=== PATIENT | female | born 1950 | race Caucasian/White ===

== ENCOUNTER 2017-06-26 12:50 | Observation (INO) | payer OTHER ==
[2017-06-26 12:53] VITALS: BMI 35.6
[2017-06-26] MEDS ORDERED: Iohexol 240 (50 ml) ONE (13:40)
--- NOTE | 2017-06-26 13:41 | ED PDOC ---
Arrival/HPI - General Chief Complaint: Shortness Of Breath Time Seen by Provider: 06/26/17 12:52 Historian: Patient - History of Present Illness Narrative History of Present Illness (Text): 06/26/17 13:36 A 67 year old female, whose past medical history includes hypertension, diabetes , diabetic neuropathy and hepatitis c, presents to the emergency department for worsening epigastric and lower chest pain for the past 3 days. Patient reports the pain which she describes as a burning sensation but mainly worse with exertion. She notes a headache and states she was concerned since her blood pressure was 169/103 this morning. Patient also notes dyspnea on exertion, generalized weakness and fatigue, but denies any fever, chills, nausea, vomiting , diarrhea, urinary symptoms, cough, dizziness, vision changes or any other complaints. Patient is complaint with her medications. She is followed at [facility] for her hep C and cirrhosis. Time/Duration: Other (3 days) Symptom Course: Worsening Quality: Other Context: Home Past Medical History - Provider Review Nursing Documentation Reviewed: Yes - Infectious Disease Hx of Infectious Diseases: None - Tetanus Immunization Tetanus Immunization: Unknown - Reproductive Menopause: Yes - Cardiac Hx Cardiac Disorders: Yes Hx Circulatory Problems: Yes Hx Hypertension: Yes Hx Peripheral Edema: Yes - Pulmonary Hx Respiratory Disorders: Yes Hx Asthma: Yes (Climate induced.) Hx Bronchitis: Yes - Neurological Hx Neurological Disorder: No - HEENT Hx HEENT Disorder: No - Renal Hx Renal Disorder: No - Endocrine/Metabolic Hx Endocrine Disorders: Yes Hx Diabetes Mellitus Type 2: Yes - Hematological/Oncological Hx Blood Disorders: Yes (Occasional nosebleeds.) Hx Hepatitis C: Yes - Integumentary Hx Dermatological Disorder: No - Musculoskeletal/Rheumatological Hx Musculoskeletal Disorders: Yes Hx Back Pain: Yes Hx Herniated Disk: Yes Hx Osteoporosis: Yes - Gastrointestinal Hx Gastrointestinal Disorders: Yes (Hx of Colon Polyps.) - Genitourinary/Gynecological Hx Genitourinary Disorders: No - Psychiatric Hx Psychophysiologic Disorder: No Hx Substance Use: No - Past Surgical History Past Surgical History: Unable to Obtain - Surgical History Hx Cardiac Catheterization: Yes - Suicidal Assessment Feels Threatened In Home Enviroment: No Family/Social History - Physician Review Nursing Documentation Reviewed: Yes Family/Social History: No Known Family HX Smoking Status: Never Smoked Hx Alcohol Use: No Hx Substance Use: No Hx Substance Use Treatment: No Allergies/Home Meds Allergies/Adverse Reactions: Allergies No Known Allergies Allergy (Verified 02/11/16 15:17) Home Medications: Home Meds Medication Instructions Recorded Confirmed Glimepiride 1 mg PO BID 02/24/13 06/26/17 Esomeprazole Magnesium [Nexium] 40 mg PO DAILY 02/11/16 06/26/17 amLODIPine [Norvasc] 5 mg PO DAILY 02/11/16 06/26/17 Carvedilol [Coreg] 3.125 mg PO BID 06/26/17 06/26/17 tiZANidine [Zanaflex] 4 mg PO HS 06/26/17 06/26/17 Review of Systems - Physician Review All systems were reviewed & negative as marked: Yes - Review of Systems Constitutional: Fatigue (/weakness). absent: Fevers, Night Sweats Eyes: absent: Vision Changes Respiratory: Other (HICKS). absent: Cough Cardiovascular: Chest Pain (Lower) Gastrointestinal: Abdominal Pain (Epigastric). absent: Diarrhea, Nausea, Vomiting Genitourinary Female: absent: Dysuria, Frequency, Hematuria, Urine Output Changes Neurological: Headache. absent: Dizziness Physical Exam Vital Signs Reviewed: Yes Vital Signs Temp Pulse Resp BP Pulse Ox 06/26/17 16:46 71 18 131/74 87 L 06/26/17 15:41 56 L 20 139/68 99 06/26/17 13:06 18 06/26/17 12:51 98.2 F 66 17 139/72 98 Temperature: Afebrile Blood Pressure: Normal Pulse: Regular Respiratory Rate: Normal Appearance: Positive for: Well-Appearing, Non-Toxic, Comfortable Pain Distress: None Mental Status: Positive for: Alert and Oriented X 3 Finger Stick Blood Glucose: 227 - Systems Exam Head: Present: Atraumatic, Normocephalic Pupils: Present: PERRL Conjunctiva: Present: Normal Mouth: Present: Moist Mucous Membranes Pharnyx: No: ERYTHEMA, EXUDATE, TONSILS ENLARGED Neck: Present: Normal Range of Motion Respiratory/Chest: Present: Clear to Auscultation, Good Air Exchange. No: Respiratory Distress, Accessory Muscle Use Cardiovascular: Present: Regular Rate and Rhythm, Normal S1, S2. No: Murmurs Abdomen: Present: Tenderness (Mild tenderness to bilateral upper quadrants), Normal Bowel Sounds. No: Distention, Peritoneal Signs, Rebound, Guarding Back: Present: Normal Inspection Upper Extremity: Present: Normal Inspection. No: Cyanosis, Edema Lower Extremity: Present: Normal Inspection. No: Edema Neurological: Present: GCS=15, CN II-XII Intact, Speech Normal Skin: Present: Warm, Dry, Normal Color. No: Rashes Psychiatric: Present: Alert, Oriented x 3, Normal Insight, Normal Concentration Medical Decision Making ED Course and Treatment: 06/26/17 13:36 Impression: A 67 year old female with worsening epigastric abdominal pain. Patient notes lower chest pain, dyspnea on exertion, headache, weakness and fatigue. Plan: -- Head CT -- Abdomen and pelvis CT -- Chest xray -- EKG -- Labs -- Urinalysis -- Pepcid -- Reassess and disposition Progress Notes: EKG shows NSR at 66 BPM with normal intervals, normal axis, no ST/T changes, with no changes from prior on 02/12/16. Interpreted by me. Report Date : 06/26/2017 13:44:41 Procedure: Chest xray Dictator : Zayda Gonzalez MD IMPRESSION: No active pulmonary disease. Report Date : 06/26/2017 16:37:54 PROCEDURE: CT Abdomen and Pelvis with contrast Dictator : Jalen Chávez MD IMPRESSION: Cirrhosis. Peripancreatic and celiac region adenopathy unchanged. Esophageal and gastric varices unchanged. Report Date : 06/26/2017 16:26:17 PROCEDURE: CT HEAD WITHOUT CONTRAST. Dictator : Jalen Chávez MD IMPRESSION: No acute findings 06/26/17 17:34 Patient with noted history. CT a/p showing no changes and labs are nondiagnostic. However the patient's symptoms are worse with exertion, and she is an elderly diabetic, making her at higher risk for ACS, so she will need to be placed on observation on tele for further assessment for possible cardiac etiology of her pain. Discussed with Dr. Rodriguez for placement on the hospitalist' s service. - Lab Interpretations Lab Results: 06/26/17 13:20 06/26/17 13:20 Lab Results 06/26/17 15:05: Urine Color Yellow, Urine Appearance Clear, Urine pH 6.5, Ur Specific [place] 1.015, Urine Protein Negative, Urine Glucose (UA) Negative, Urine Ketones Negative, Urine Blood Negative, Urine Nitrate Negative, Urine Bilirubin Negative, Urine Urobilinogen 0.2, Ur Leukocyte Esterase Negative 06/26/17 13:25: POC Glucose (mg/dL) 227 H 06/26/17 13:20: Sodium 132, Potassium 4.2, Chloride 97 L, Carbon Dioxide 25, Anion Gap 14, BUN 18, Creatinine 0.7, Est GFR ( Amer) > 60, Est GFR (Non- Af Amer) > 60, Random Glucose 209 H, Calcium 8.8, Magnesium 1.4 L, Total Bilirubin 0.8, AST 91 H, ALT 75 H, Alkaline Phosphatase 92, Lactate Dehydrogenase 410, Total Creatine Kinase 43, Troponin I 0.01, NT-Pro-B Natriuret Pep 111, Total Protein 7.3, Albumin 3.5, Globulin 3.8, Albumin/ Globulin Ratio 0.9 L, Lipase 266 06/26/17 13:20: PT 11.4, INR 1.06, APTT 30.6 06/26/17 13:20: WBC 4.3 L, RBC 4.58, Hgb 10.8 L, Hct 33.1 L, MCV 72.3 L, MCH 23.6 L, MCHC 32.6, RDW 17.1 H, Plt Count 118 L, Gran % 45.3 L, Lymph % (Auto) 41.1 H, Hayes % (Auto) 9.6 H, Eos % (Auto) 3.5, Baso % (Auto) 0.5, Gran # 1.94, Lymph # 1.8, Hayes # 0.4, Eos # 0.2, Baso # 0.02 I have reviewed the lab results: Yes - RAD Interpretation Radiology Orders: 06/26/17 13:07 CHEST PORTABLE [RAD] Stat 06/26/17 13:36 Brain [HEAD W/O CONTRAST] [CT] Stat 06/26/17 13:37 ABD PELVIS PO & IV CONTRAST [CT] Stat - Medication Orders Current Medication Orders: Discontinued Medications Famotidine (Pepcid) 20 mg IVP STAT STA Stop: 06/26/17 13:08 Last Admin: 06/26/17 13:32 Dose: 20 mg Magnesium Sulfate 2 gm/ Sodium (Chloride) 104 mls @ 102 mls/hr IV ONCE ONE Stop: 06/26/17 15:18 Last Admin: 06/26/17 14:29 Dose: 102 mls/hr Iohexol (Omnipaque 240 (50 Ml)) Confirm Administered Dose 50 ml .ROUTE .STK-MED ONE Stop: 06/26/17 13:41 Iohexol (Omnipaque 350 100 Ml) Confirm Administered Dose 350 mg .ROUTE .STK-MED ONE Stop: 06/26/17 15:40 Ondansetron HCl (Zofran Inj) 4 mg IVP STAT STA Stop: 06/26/17 14:44 Last Admin: 06/26/17 14:51 Dose: 4 mg - Scribe Statement The provider has reviewed the documentation as recorded by the Helenibadan Briones Provider Scribe Attestation: All medical record entries made by the Scribe were at my direction and personally dictated by me. I have reviewed the chart and agree that the record accurately reflects my personal performance of the history, physical exam, medical decision making, and the department course for this patient. I have also personally directed, reviewed, and agree with the discharge instructions and disposition. Disposition/Present on Arrival - Present on Arrival Any Indicators Present on Arrival: Yes History of DVT/PE: No History of Uncontrolled Diabetes: Yes Urinary Catheter: No History of Decub. Ulcer: No History Surgical Site Infection Following: None - Disposition Have Diagnosis and Disposition been Completed?: Yes Diagnosis: Chest pain Disposition: HOSPITALIZED Disposition Time: 17:23 Patient Plan: Observation, Telemetry Condition: FAIR Discharge Instructions (ExitCare): Chest Pain (ED) Referrals: PCP,NO [Primary Care Provider] - Follow up with primary Forms: [employer] (Tunisian)
--- NOTE | 2017-06-26 13:46 | RAD ---
HISTORY: Chest pain COMPARISON: 02/11/2016. FINDINGS: LUNGS: The lungs are well inflated and clear. PLEURA: No significant pleural effusion identified, no pneumothorax apparent. CARDIOVASCULAR: Normal. OSSEOUS STRUCTURES: No significant abnormalities. VISUALIZED UPPER ABDOMEN: Normal. OTHER FINDINGS: None. IMPRESSION: No active pulmonary disease.
[2017-06-26 13:49] LABS: BASO # 0.02 K/mm3 (0.0-2.0); BASO % 0.5 % (0.0-3.0); EOS # 0.2 (0.0-0.7); EOS % 3.5 % (1.5-5.0); GRAN # 1.94 (1.4-6.5); GRAN % 45.3 % (50.0-68.0); HEMATOCRIT 33.1 % (36.0-48.0); LYMPH # 1.8 (1.2-3.4); LYMPH % 41.1 % (22.0-35.0); MEAN CELL VOLUME 72.3 fl (80.0-105.0); MEAN CORPUSCULAR HEMOGLOBIN 23.6 pg (25.0-35.0); MEAN CORPUSCULAR HGB CONC 32.6 g/dl (31.0-37.0); MONO # 0.4 (0.1-0.6); MONO % 9.6 % (1.0-6.0); PLATELET COUNT 118 10^3/uL (120.0-450.0); RED CELL DISTRIBUTION WIDTH 17.1 % (11.5-14.5); WHITE BLOOD COUNT 4.3 10^3/ul (4.5-11.0)
[2017-06-26 14:00] LABS: INR 1.06 (0.93-1.08); PARTIAL THROMBOPLASTIN TIME 30.6 Seconds (23.7-30.8)
[2017-06-26 14:02] LABS: ALB/GLOB RATIO 0.9 (1.1-1.8); ALKALINE PHOSPHATASE 92 U/L (38-133); ALT/SGPT 75 U/L (7-56); AST/SGOT 91 U/L (15-39); BILIRUBIN,TOTAL 0.8 mg/dL (0.2-1.3); BLOOD UREA NITROGEN 18 mg/dL (7-21); CALCIUM 8.8 mg/dL (8.4-10.5); CARBON DIOXIDE 25 mmol/L (21-33); CHLORIDE 97 mmol/L (98-107); GFR AFRICAN-AMERICAN > 60; GLUCOSE,RANDOM 209 mg/dL (70-110); LIPASE 266 U/L (23-300); MAGNESIUM 1.4 mg/dL (1.7-2.2); POTASSIUM 4.2 mmol/L (3.6-5.0); SODIUM 132 mmol/L (132-148); TOTAL PROTEIN 7.3 g/dL (5.8-8.3)
[2017-06-26 14:12] LABS: TROPONIN I 0.01 ng/mL
[2017-06-26] MEDS ORDERED: Magnesium Sulfate 2 GM in Sodium Chloride 0.9% 100 ML IV ONE (14:17)
[2017-06-26 15:16] LABS: PH,URINE 6.5 (4.7-8.0); URINE BILIRUBIN NEGATIVE (NEGATIVE); URINE BLOOD NEGATIVE (NEGATIVE); URINE GLUCOSE (UA) NEGATIVE (NEGATIVE); URINE KETONE NEGATIVE (NEGATIVE); URINE LEUKOCYTE ESTERASE NEGATIVE Leu/uL (NEGATIVE); URINE PROTEIN NEGATIVE mg/dL (<30 mg/dL); URINE UROBILINOGEN 0.2 E.U./dL (<1 E.U./dL)
[2017-06-26 15:19] LABS: URINE APPEARANCE CLEAR (CLEAR); URINE COLOR YELLOW (YELLOW)
[2017-06-26] MEDS ORDERED: Iohexol 350 MG/100 ML VIAL ONE (15:39)
--- NOTE | 2017-06-26 16:28 | CT ---
PROCEDURE: CT HEAD WITHOUT CONTRAST. HISTORY: headache COMPARISON: 01/07/2014 TECHNIQUE: Axial computed tomography images were obtained through the head/brain without intravenous contrast. Radiation dose: Total exam DLP = 712 mGy-cm. This CT exam was performed using one or more of the following dose reduction techniques: Automated exposure control, adjustment of the mA and/or kV according to patient size, and/or use of iterative reconstruction technique. FINDINGS: HEMORRHAGE: No intracranial hemorrhage. BRAIN: No mass effect or edema. No atrophy or chronic microvascular ischemic changes. VENTRICLES: Unremarkable. No hydrocephalus. CALVARIUM: Unremarkable. PARANASAL SINUSES: Unremarkable as visualized. No significant inflammatory changes. MASTOID AIR CELLS: Unremarkable as visualized. No inflammatory changes. OTHER FINDINGS: None. IMPRESSION: No acute findings
--- NOTE | 2017-06-26 16:39 | CT ---
PROCEDURE: CT Abdomen and Pelvis with contrast HISTORY: upper abd pain, cirrhosis COMPARISON: 02/11/2016 TECHNIQUE: Contrast dose: 100 cc of Omni 350 Radiation dose: Total exam DLP = 1134 mGy-cm. This CT exam was performed using one or more of the following dose reduction techniques: Automated exposure control, adjustment of the mA and/or kV according to patient size, and/or use of iterative reconstruction technique. FINDINGS: LOWER THORAX: Unremarkable. LIVER: Minimal contour irregularity of the liver consistent with the history of cirrhosis. GALLBLADDER AND BILE DUCTS: Unremarkable. PANCREAS: Unremarkable. No gross lesion or ductal dilatation. SPLEEN: Unremarkable. ADRENALS: Unremarkable. No mass. KIDNEYS AND URETERS: Unremarkable. No hydronephrosis. No solid mass. VASCULATURE: Esophageal in gastric varices are seen. These are unchanged. BOWEL: Unremarkable. No obstruction. No gross mural thickening. APPENDIX: Normal appendix. PERITONEUM: Unremarkable. No free fluid. No free air. LYMPH NODES: Enlarged nodes are seen in the celiac and peripancreatic region history of hepatitis C. findings are unchanged BLADDER: Unremarkable. REPRODUCTIVE: Enlarged pelvic varices are seen BONES: No acute fracture. OTHER FINDINGS: None. IMPRESSION: Cirrhosis. Peripancreatic and celiac region adenopathy unchanged. Esophageal and gastric varices unchanged.
--- NOTE | 2017-06-26 19:02 | CP.PCM.HP ---
History of Present Illness - History of Present Illness History of Present Illness: Hospitalist Service, PGY-1 H&P 67 year female with a past medical history of esophageal and gastric varices, HCV-currently untreated, hypertension, GERD and DM who presents with one week of exertional chest pain and dyspnea. Today she had some nausea in addition to the chest pain and shortness of breath. The symptoms were constant and did not improve, such that she was brought into the ED. Important to note, the history was provided by the son, who is quasi-medically competent. He states that his mother gets "chest pain and shortness of breath, when walking 0.5 blocks and/or when she goes up 2 flights of stairs, that is only relieved by approximately 30 minutes of rest. She has been having increasing dy-p-jacinto in the past week. No cough, no leg swelling though." He further states that she gets light headed and dizzy when she stands up from the supine or seated position. He mentions that he when checking her blood pressure, it is either very high or very low. He mentions that she had an ECHO 2 years ago at [facility], and a stress test in the past that was read as indeterminate. Lastly, he mentions that they, i.e. his mother and business support assistant of [facility] are in discussions about starting HCV therapy. PMD: Dr. Nix PSH: See ED note for details Allergies: NKDA Medications: Reviewed FH: Non-contributory Present on Admission - Present on Admission Any Indicators Present on Admission: No Review of Systems - Constitutional Constitutional: As Per HPI Past Patient History - Infectious Disease Hx of Infectious Diseases: None - Tetanus Immunizations Tetanus Immunization: Unknown - Past Medical History & Family History Past Medical History?: Yes - Past Social History Smoking Status: Never Smoked - CARDIAC Hx Cardiac Disorders: Yes Hx Circulatory Problems: Yes Hx Hypertension: Yes Hx Peripheral Edema: Yes - PULMONARY Hx Respiratory Disorders: Yes Hx Asthma: Yes (Climate induced.) Hx Bronchitis: Yes - NEUROLOGICAL Hx Neurological Disorder: No - HEENT Hx HEENT Problems: No - RENAL Hx Chronic Kidney Disease: No - ENDOCRINE/METABOLIC Hx Endocrine Disorders: Yes Hx Diabetes Mellitus Type 2: Yes - HEMATOLOGICAL/ONCOLOGICAL Hx Blood Disorders: Yes (Occasional nosebleeds.) Hx Hepatitis C: Yes - INTEGUMENTARY Hx Dermatological Problems: No - MUSCULOSKELETAL/RHEUMATOLOGICAL Hx Musculoskeletal Disorders: Yes Hx Back Pain: Yes Hx Herniated Disk: Yes Hx Osteoporosis: Yes - GASTROINTESTINAL Hx Gastrointestinal Disorders: Yes (Hx of Colon Polyps.) - GENITOURINARY/GYNECOLOGICAL Hx Genitourinary Disorders: No - PSYCHIATRIC Hx Psychophysiologic Disorder: No Hx Substance Use: No - SURGICAL HISTORY Hx Cardiac Catheterization: Yes Meds Allergies/Adverse Reactions: Allergies Allergy/AdvReac Type Severity Reaction Status Date / Time No Known Allergies Allergy Verified 02/11/16 15:17 Physical Exam - Constitutional Appears: Non-toxic, No Acute Distress - Head Exam Head Exam: ATRAUMATIC, NORMOCEPHALIC - Eye Exam Eye Exam: EOMI, Normal appearance, PERRL - ENT Exam ENT Exam: Mucous Membranes Moist, Normal Oropharynx - Neck Exam Neck exam: Positive for: Normal Inspection. Negative for: Tenderness - Respiratory Exam Respiratory Exam: Clear to Auscultation Bilateral, NORMAL BREATHING PATTERN - Cardiovascular Exam Cardiovascular Exam: +S1, +S2 Additional comments: ectopic beats auscultated. - GI/Abdominal Exam GI & Abdominal Exam: Tenderness (epigastric ) - Extremities Exam Extremities exam: Positive for: normal capillary refill, normal inspection, pedal pulses present. Negative for: pedal edema - Back Exam Back exam: NORMAL INSPECTION. absent: CVA tenderness (L), CVA tenderness (R) - Neurological Exam Neurological exam: Alert, CN II-XII Intact, Oriented x3 - Psychiatric Exam Psychiatric exam: Normal Affect, Normal Mood - Skin Skin Exam: Normal Color, Warm Additional comments: unusual marino hue Results - Vital Signs Recent Vital Signs: Last Vital Signs Temp 98.2 F 06/26/17 12:51 Pulse 71 06/26/17 16:46 Resp 18 06/26/17 16:46 BP 131/74 06/26/17 16:46 Pulse Ox 87 L 06/26/17 16:46 - Labs Result Diagrams: 06/26/17 13:20 06/26/17 13:20 - EKG Data Rate: Normal Assessment & Plan - Assessment and Plan (Free Text) Assessment: A 67 year old female with worsening epigastric abdominal pain. Patient notes lower chest pain, dyspnea on exertion, headache, weakness and fatigue. Plan: Notes from the ED Progress Notes: EKG shows NSR at 66 BPM with normal intervals, normal axis, no ST/T changes, with no changes from prior on 02/12/16. Interpreted by me. Report Date : 06/26/2017 13:44:41 Procedure: Chest xray Dictator : Zayda Gonzalez MD IMPRESSION: No active pulmonary disease. Report Date : 06/26/2017 16:37:54 PROCEDURE: CT Abdomen and Pelvis with contrast Dictator : Jalen Chávez MD IMPRESSION: Cirrhosis. Peripancreatic and celiac region adenopathy unchanged. Esophageal and gastric varices unchanged. Report Date : 06/26/2017 16:26:17 PROCEDURE: CT HEAD WITHOUT CONTRAST. Dictator : Jalen Chávez MD IMPRESSION: No acute findings 06/26/17 17:34 Patient with noted history. CT a/p showing no changes and labs are nondiagnostic. However the patient's symptoms are worse with exertion, and she is an elderly diabetic, making her at higher risk for ACS, so she will need to be placed on observation on tele for further assessment for possible cardiac etiology of her pain. Discussed with Dr. Rodriguez for placement on the hospitalist' s service. Current plan: 1) Atypical chest pain in an overweight, diabetic female. - EKG normal - troponin (-), one repeat troponin ordered - Cardiology consulted 2) Orthostatic hypotension: - Holding the home Captopril/HCTZ 50/25 BID given the patient orthostatic symptoms at home - C/W Amlodipine 5 mg daily and Coreg 3.125 BID - Will perform orthostatic blood pressure in the morning 3) GERD in a patient in esophageal and gastric varices - Protonix 40 mg q12 BID, 1 hour before meals - GI consult, suspicion for Peptic Ulcer Disease 4) DVT prophylaxis with heparin 5,000 SC q12 5) FEN: HHD diet, NPO after midnight except for medications - Date & Time Date: 06/26/17 Time: 20:39
[2017-06-26] MEDS: Pantoprazole 40 mg EC Tab PO SCH (19:54)
[2017-06-26 21:31] LABS: BASO # 0.04 K/mm3 (0.0-2.0); BASO % 0.8 % (0.0-3.0); EOS # 0.2 (0.0-0.7); EOS % 3.4 % (1.5-5.0); GRAN % 39.4 % (50.0-68.0); HEMATOCRIT 32.6 % (36.0-48.0); LYMPH # 2.5 (1.2-3.4); LYMPH % 49.3 % (22.0-35.0); MEAN CELL VOLUME 71.5 fl (80.0-105.0); MEAN CORPUSCULAR HEMOGLOBIN 23.7 pg (25.0-35.0); MEAN CORPUSCULAR HGB CONC 33.1 g/dl (31.0-37.0); MONO # 0.4 (0.1-0.6); MONO % 7.1 % (1.0-6.0); PLATELET COUNT 129 10^3/uL (120.0-450.0); RED CELL DISTRIBUTION WIDTH 16.9 % (11.5-14.5); WHITE BLOOD COUNT 5.1 10^3/ul (4.5-11.0)
[2017-06-26] MEDS: Insulin Reg-LOW-Coverage SC SCH (21:51)
[2017-06-26 22:35] LABS: BAND 3 % (0-2); EOSINOPHIL 1 % (0.0-3.0); HYPOCHROMIA SLIGHT; NEUTROPHIL 47 % (50.0-70.0); PLATELET ESTIMATE NORMAL (NORMAL)
[2017-06-26 22:36] LABS: ANISOCYTOSIS SLIGHT; MICROCYTOSIS SLIGHT; OVALOCYTES SLIGHT
[2017-06-26] MEDS ORDERED: Pneumococcal 23-Valent Vaccine IM ONE (23:33)
[2017-06-27] MEDS: Pantoprazole 40 mg EC Tab PO SCH (05:39)
[2017-06-27 06:36] VITALS: O2SAT 96
[2017-06-27 06:59] LABS: BASO # 0.04 K/mm3 (0.0-2.0); BASO % 0.9 % (0.0-3.0); EOS # 0.2 (0.0-0.7); EOS % 4.4 % (1.5-5.0); GRAN # 1.57 (1.4-6.5); GRAN % 36.7 % (50.0-68.0); HEMATOCRIT 32.1 % (36.0-48.0); LYMPH # 2.2 (1.2-3.4); MEAN CELL VOLUME 71.3 fl (80.0-105.0); MEAN CORPUSCULAR HEMOGLOBIN 23.3 pg (25.0-35.0); MEAN CORPUSCULAR HGB CONC 32.7 g/dl (31.0-37.0); MONO # 0.3 (0.1-0.6); PLATELET COUNT 121 10^3/uL (120.0-450.0); RED CELL DISTRIBUTION WIDTH 17.1 % (11.5-14.5); WHITE BLOOD COUNT 4.3 10^3/ul (4.5-11.0)
[2017-06-27 07:11] LABS: ALB/GLOB RATIO 0.9 (1.1-1.8); ALKALINE PHOSPHATASE 90 U/L (38-133); ALT/SGPT 78 U/L (7-56); AST/SGOT 86 U/L (15-39); BILIRUBIN,TOTAL 0.6 mg/dL (0.2-1.3); BLOOD UREA NITROGEN 16 mg/dL (7-21); CALCIUM 8.8 mg/dL (8.4-10.5); CARBON DIOXIDE 25 mmol/L (21-33); CHLORIDE 98 mmol/L (98-107); CHOLESTEROL 98 mg/dL (130-200); GFR AFRICAN-AMERICAN > 60; GLUCOSE,RANDOM 100 mg/dL (70-110); POTASSIUM 3.9 mmol/L (3.6-5.0); SODIUM 131 mmol/L (132-148); TOTAL PROTEIN 7.2 g/dL (5.8-8.3)
[2017-06-27] MEDS: Insulin Reg-LOW-Coverage SC SCH ×2 (08:02→11:35)
--- NOTE | 2017-06-27 09:36 | CARD ---
APPROVED REPORT EKG Measurement Heart [id number] <Conclusion> Normal sinus rhythm Moderate voltage criteria for LVH, may be normal variant ST abnormality Abnormal ECG
[2017-06-27 12:18] VITALS: BP 129/73; PULSE 60; RESP 18; TEMP 98.3
--- NOTE | 2017-06-27 15:11 | CP.PCM.DIS ---
Provider - Provider Date of Admission: 06/26/17 17:23 Attending physician: Aleshia Rodriguez MD Primary care physician: NO PRIMARY CARE PROVIDER Consults: Dr. Huber Dominguez Cardiology Time Spent in preparation of Discharge (in minutes): 33 Hospital Course - Lab Results Lab Results: Most Recent Lab Values WBC 4.3 10^3/ul (4.5-11.0) L 06/27/17 06:30 RBC 4.50 10^6/uL (3.5-6.1) 06/27/17 06:30 Hgb 10.5 g/dL (12.0-16.0) L 06/27/17 06:30 Hct 32.1 % (36.0-48.0) L 06/27/17 06:30 MCV 71.3 fl (80.0-105.0) L 06/27/17 06:30 MCH 23.3 pg (25.0-35.0) L 06/27/17 06:30 MCHC 32.7 g/dl (31.0-37.0) 06/27/17 06:30 RDW 17.1 % (11.5-14.5) H 06/27/17 06:30 Plt Count 121 10^3/uL (120.0-450.0) 06/27/17 06:30 Gran % 36.7 % (50.0-68.0) L 06/27/17 06:30 Lymph % (Auto) 51.0 % (22.0-35.0) H 06/27/17 06:30 [place] % (Auto) 7.0 % (1.0-6.0) H 06/27/17 06:30 Eos % (Auto) 4.4 % (1.5-5.0) 06/27/17 06:30 Baso % (Auto) 0.9 % (0.0-3.0) 06/27/17 06:30 Gran # 1.57 (1.4-6.5) 06/27/17 06:30 Lymph # 2.2 (1.2-3.4) 06/27/17 06:30 [place] # 0.3 (0.1-0.6) 06/27/17 06:30 Eos # 0.2 (0.0-0.7) 06/27/17 06:30 Baso # 0.04 K/mm3 (0.0-2.0) 06/27/17 06:30 Neutrophils % (Manual) 47 % (50.0-70.0) L 06/26/17 21:27 Band Neutrophils % 3 % (0-2) H 06/26/17 21:27 Lymphocytes % (Manual) 45 % (22.0-35.0) H 06/26/17 21:27 Monocytes % (Manual) 4 % (1.0-6.0) 06/26/17 21:27 Eosinophils % (Manual) 1 % (0.0-3.0) 06/26/17 21:27 Platelet Evaluation Normal (NORMAL) 06/26/17 21:27 Hypochromasia Slight 06/26/17 21:27 Anisocytosis (manual) Slight 06/26/17 21:27 Microcytosis (manual) Slight 06/26/17 21:27 Ovalocytes Slight 06/26/17 21:27 PT 11.4 Seconds (9.9-11.8) 06/26/17 13:20 INR 1.06 (0.93-1.08) 06/26/17 13:20 APTT 30.6 Seconds (23.7-30.8) 06/26/17 13:20 Sodium 131 mmol/L (132-148) L 06/27/17 06:30 Potassium 3.9 mmol/L (3.6-5.0) 06/27/17 06:30 Chloride 98 mmol/L (98-107) 06/27/17 06:30 Carbon Dioxide 25 mmol/L (21-33) 06/27/17 06:30 Anion Gap 12 (10-20) 06/27/17 06:30 BUN 16 mg/dL (7-21) 06/27/17 06:30 Creatinine 0.7 mg/dL (0.5-1.4) 06/27/17 06:30 Est GFR ( Amer) > 60 06/27/17 06:30 Est GFR (Non-Af Amer) > 60 06/27/17 06:30 POC Glucose (mg/dL) 119 mg/dL (65-110) H 06/27/17 11:14 Random Glucose 100 mg/dL (70-110) 06/27/17 06:30 Hemoglobin A1c 7.3 % (4.2-6.5) H 06/27/17 06:30 Calcium 8.8 mg/dL (8.4-10.5) 06/27/17 06:30 Magnesium 1.4 mg/dL (1.7-2.2) L 06/26/17 13:20 Total Bilirubin 0.6 mg/dL (0.2-1.3) 06/27/17 06:30 AST 86 U/L (15-39) H 06/27/17 06:30 ALT 78 U/L (7-56) H 06/27/17 06:30 Alkaline Phosphatase 90 U/L (38-133) 06/27/17 06:30 Ammonia 22 umol/L (9-33) 06/27/17 06:30 Lactate Dehydrogenase 410 U/L (333-699) 06/26/17 13:20 Total Creatine Kinase 43 U/L (35-230) 06/26/17 13:20 Troponin I < 0.01 ng/mL 06/26/17 21:27 NT-Pro-B Natriuret Pep 111 pg/mL (0-450) 06/26/17 13:20 Total Protein 7.2 g/dL (5.8-8.3) 06/27/17 06:30 Albumin 3.4 g/dL (3.0-4.8) 06/27/17 06:30 Globulin 3.7 gm/dL 06/27/17 06:30 Albumin/Globulin Ratio 0.9 (1.1-1.8) L 06/27/17 06:30 Triglycerides 228 mg/dL (35-160) H 06/27/17 06:30 Cholesterol 98 mg/dL (130-200) L 06/27/17 06:30 LDL Cholesterol Direct 39 mg/dL (0-129) 06/27/17 06:30 HDL Cholesterol 27 mg/dL (29-60) L 06/27/17 06:30 Lipase 266 U/L (23-300) 06/26/17 13:20 TSH 3rd Generation 2.41 mIU/mL (0.46-4.68) 06/27/17 06:30 Urine Color Yellow (YELLOW) 06/26/17 15:05 Urine Appearance Clear (CLEAR) 08/29/17 15:05 Urine pH 6.5 (4.7-8.0) 06/26/17 15:05 Ur Specific [place] 1.015 (1.005-1.035) 06/26/17 15:05 Urine Protein Negative mg/dL (<30 mg/dL) 06/26/17 15:05 Urine Glucose (UA) Negative mg/dL (NEGATIVE) 06/26/17 15:05 Urine Ketones Negative mg/dL (NEGATIVE) 06/26/17 15:05 Urine Blood Negative (NEGATIVE) 06/26/17 15:05 Urine Nitrate Negative (NEGATIVE) 06/26/17 15:05 Urine Bilirubin Negative (NEGATIVE) 06/26/17 15:05 Urine Urobilinogen 0.2 E.U./dL (<1 E.U./dL) 06/26/17 15:05 Ur Leukocyte Esterase Negative Adria/uL (NEGATIVE) 06/26/17 15:05 - Hospital Course Hospital Course: 67 year female with a past medical history of esophageal and gastric varices, HCV-currently untreated, hypertension, GERD and DM who presented with one week of increasing exertional dyspnea, chest discomofort, and as of the day of admission nausea and a headache. The history is provided by her son and daughter -in-law given the patient is only Mongolian speaking. When she walks 0.5 blocks and when she goes up 2 flights of stairs, her symptoms emerge, and are only relieved by approximately 30 minutes of rest. There is no cough, no leg swelling. Furthermore, she has been getting light headed and dizzy when she stands up from the supine or seated position. The son mentions that when he has been checking her blood pressure, it is either very high or very low. He mentions she has been taking the same medications, but sometime recently started taking a 50/25 Captopril/HCTZ combination that she retrieved from [facility] due to its prohibitive cost. Per the patient's son, her last ECHO was done 2 years ago at [facility], and also sometime therein she had a stress test in the past that was read as indeterminate for myocardial ischemia. Lastly, he mentions that his mother will likely begin HCV therapy at [facility] in the coming month. Upon admission, initial labs and imaging including, but not limited to, CXR, EKG, and troponins x2 were negative for MS; a non-contrast CT of the head was negative. CT of the abdomen and pelvis showed cirrhosis, peripancreatic and celiac region adenopathy, and esophageal and gastric varices, all unchanged compared to prior imaging. Orthostatic blood pressures showed a drop in systolic blood pressure greater than 20 mmHg and elicited symptoms of transient light headedness. The patient was admitted to telemetry for cardiac monitoring with GI and Cardiology coinsulted. The transthoracic echocardiogram performed concluded the following : Dilated Left Atrium Normal left ventricle and systolic function; mild concentric LVH, and mild Tricupid Regurgitation. Dr. Dominguez (Cardiology) saw and examined the patient, as well as interpreted her EKG and TTE, and advised that the patient undergo stress test given her symptoms and multiple risk factors. GI, Dr. Ngo, was also consulted and recommended optimizing antireflux precautions. The patient was discharged with instructions to discontinue her Captopril/ HCTZ combination, rise slowly when going from the seated/supine position to standing. She was switched from Omeprazole to Pantoprazole, and recommended to see her PMD within the next week. I will contact the patient as well as her PMD to inform them that she should undergo a cardiac stress test. Discharge Exam - Head Exam Head Exam: ATRAUMATIC, NORMOCEPHALIC - Eye Exam Eye Exam: EOMI, Normal appearance, PERRL - ENT Exam ENT Exam: Mucous Membranes Moist, Normal Oropharynx - Respiratory Exam Respiratory Exam: Clear to PA & Lateral, NORMAL BREATHING PATTERN. absent: Rales - Cardiovascular Exam Cardiovascular Exam: RRR, +S1, +S2 Additional comments: ectopy - GI/Abdominal Exam GI & Abdominal Exam: Normal Bowel Sounds. absent: Tenderness - Extremities Exam Extremities exam: normal inspection, pedal pulses present Additional comments: no LE edema - Neurological Exam Neurological exam: Alert, CN II-XII Intact, Oriented x3 - Psychiatric Exam Psychiatric exam: Normal Affect, Normal Mood - Skin Skin Exam: Dry, Intact, Normal Color, Warm Additional comments: unusual marino to skin Discharge Plan - Discharge Medications Prescriptions: Pantoprazole [Protonix EC Tab] 40 mg PO ONCE #30 ect - Follow Up Plan Condition: FAIR Disposition: HOME/ ROUTINE Instructions: Chest Pain (ED) Additional Instructions: 1) Patient recommended to follow up with PMD, Dr. Nix, within one week of discharge date. 2) Patient to discontinue Omeprazole/Esomeprazole, and start Pantoprazole, as prescribed/directed. 3) Patient to stop taking Captopril/HCTZ medication and continue with Amlodipine and Carvedilol. 4) Patient advised to follow up/keep appointment with GI doctor at [facility]. 5) Patient to be informed that she should undergo a cardiac stress test.
--- NOTE | 2017-06-27 18:02 | CON ---
DATE: 06/27/2017 HISTORY OF PRESENT ILLNESS: I examined Mrs. Simpson this morning. She is a 67-year-old Turkish female admitted with complaints of exertional dyspnea with shortness of breath, nausea, and increasing epigastric pain over the past week or so. [facility] the patient has had positional related hypotension as well as exertional dyspnea after short distance. We will try to elaborate whether the patient is following antireflux precautions. She related most of her discomfort is lower substernal and especially epigastric, in the left upper quadrant. As far as I understand, she has been following up with export freight clerk at [facility] for hepatitis C. PHYSICAL EXAMINATION: VITAL SIGNS: I reviewed this patient's vital signs. HEENT: Noncontributory. LUNGS: Decreased breath sounds at the bases. HEART: Irregular rhythm. ABDOMEN: Soft, no tenderness elicited periumbilical, right lower quadrant, left lower quadrant. She is moderately tender in the epigastric area in the left upper quadrant. LABORATORY DATA: I reviewed this patient's laboratory data. H and H of 1032 with a platelet count of 129. INR within normal limits. Chemistry indicates normal bilirubin. The AST/ALT ratio of 91/75. Troponins within normal limits as well as brain natriuretic peptide. The patient had CT of the abdomen and pelvis which indicates cirrhotic liver, biliary noncontributory. There are enlarged lymph nodes seen in the celiac and peripancreatic area, esophageal and gastric varices noted. ASSESSMENT AND PLAN: This is a 67-year-old Turkish female, admitted with complaints probably related to the coronary issues. As , she has epigastric discomfort, possibly related to either gastritis, small ulcer, or moderately severe acid reflux. Review of the orders indicate that the patient has been placed on pantoprazole 40 b.i.d. orally and other medications include carvedilol as well as aspirin, Zofran and Norvasc. She is currently on a heart healthy diet. She will be followed up by cardiology later on this morning for consideration of possible stress test. The patient has a history of hepatitis C with gastric and esophageal varices and been followed by the Hepatology. Given the fact that she has been seeing at [facility], not much I can offer in the way of therapy at this point in time. It is crucial at least at this time in point due to portal hypertension issues to try and keep the hematocrit somewhere in the range to 30 to 31 and less to avoid the possibility of an upper gastrointestinal bleed. The patient should practice antireflux precautions. Enoc Ngo DO
--- NOTE | 2017-06-28 03:38 | CON ---
DATE: 06/27/2017 REQUESTING PHYSICIAN: Dr. Rodriguez. REASON FOR CONSULTATION: Chest pain and dyspnea. HISTORY OF PRESENT ILLNESS: This is a 67-year-old woman with history of hypertension and diabetes who presented to the emergency room with complaints of epigastric and substernal chest discomfort, which is gradually burning sensation. She also had some associated exertional dyspnea. She also complains of generalized fatigue and weakness. She is seen in the presence of her daughter, who provided translation. She does have a history of hepatitis C and cirrhosis and is followed at [facility] for this. She denies any prior cardiac history. She does have a history of hypertension and diabetes. She does not smoke. There is no family history of premature heart disease. She believes her cholesterol was normal. PAST MEDICAL HISTORY: Notable for the problems mentioned above. She has only gotten a prior removal of the colonic polyps in the past. MEDICATIONS: At home include Zanaflex, Carvedilol 3.125 mg b.i.d., Norvasc 5 mg daily, Nexium 40 mg daily and Amaryl 1 mg b.i.d. ALLERGIES: NONE. FAMILY HISTORY: Both parents are from age related illness. SOCIAL HISTORY: She does not smoke or drink. She lives with her family. REVIEW OF SYSTEMS: Ten point review of systems is otherwise unremarkable. PHYSICAL EXAMINATION: GENERAL: She is healthy appearing middle age woman. VITAL SIGNS: Her blood pressure is 130/70, pulse is 56 and sinus, respirations are 14 and she is afebrile. HEENT: Normocephalic and atraumatic. NECK: Supple. No JVD noted. CHEST: Clear to auscultation and percussion. HEART: PMI normal position. No pathological murmurs or gallops noted. ABDOMEN: Soft and nontender with normoactive bowel sounds. EXTREMITIES: No edema. SKIN: Warm and dry. PSYCHIATRIC: Normal mood and affect. NEUROLOGIC: Alert and oriented x3. No gross motor or sensory is appreciable. DIAGNOSTIC DATA: White count is 4.3, hemoglobin and hematocrit 10.5 and 32.1 with MCV at 71 and platelet count is 121,000. PT/PTT are normal. Sodium is 131, potassium 3.9, BUN and creatinine of 16 and 0.7. Cholesterol is 98 with triglycerides 228, HDL 27 and LDL is 39. TSH is 2.4. Two sets of cardiac enzymes are normal. Chest x-ray reveals normal cardiac silhouette with clear lung lozano. Electrocardiogram reveals sinus rhythm with moderate voltage criteria for LVH and secondary ST-T changes. IMPRESSION: 1. Chest discomfort and dyspnea with no clear evidence of cardiac ischemia by electrocardiogram or cardiac enzymes. 2. Multiple cardiac risk factors. 3. Mild anemia. RECOMMENDATIONS: At this time, discharge home would be reasonable. Now, the patient's stress test would be advisable given her symptoms and risk factors. This is normal further evaluation would be managed. Continue risk factor control is recommended. Thank you for this consultation. Yobani Thomson MD
--- NOTE | 2017-06-28 09:56 | CARD ---
APPROVED REPORT EXAM: Two-dimensional and M-mode echocardiogram with Doppler and color Doppler. INDICATION Dyspnea 2D DIMENSIONS Left Atrium (2D)4.7 (1.6-4.0cm)IVSd1.2 (0.7-1.1cm) LVDd4.7 (3.9-5.9cm)PWd1.1 (0.7-1.1cm) LVDs2.8 (2.5-4.0cm)FS (%) 40.0 % LVEF (%)70.5 (>50%) M-Mode DIMENSIONS Aortic Root2.90 (2.2-3.7cm)Aortic Cusp Exc.1.70 (1.5-2.0cm) Aortic Valve AoV Peak Johxtgss361.0cm/Blank Peak GR.13mmHg Mitral Valve MV E Ltfhuuhs04.7cm/sMV A Vuzzqopo62.4cm/sE/A ratio0.9 TDI Lateral E' Peak V6.63cm/sMedial E' Peak V4.09cm/sE/Lateral E'10.8 E/Medial E'17.5 Pulmonary Valve PV Peak Jbjwpnhx38.3cm/sPV Peak Grad.3mmHg Tricuspid Valve TR Peak [id number] [id number] Peak Gr.21mmHg [id number] LEFT VENTRICLE The left ventricle is normal size. There is mild concentric left ventricular hypertrophy. The left ventricular function is normal. The left ventricular ejection fraction is within the normal range. There is normal LV segmental wall motion. RIGHT VENTRICLE The right ventricle is normal size. The right ventricular systolic function is normal. ATRIA The left atrium is moderately dilated. The right atrium size is normal. The interatrial septum is intact with no evidence for an atrial septal defect. AORTIC VALVE The aortic valve is mildly sclerotic. No aortic regurgitation is present. There is no aortic valvular stenosis. MITRAL VALVE The mitral valve is normal in structure. There is no mitral valve regurgitation noted. TRICUSPID VALVE The tricuspid valve is normal in structure. There is mild tricuspid regurgitation. PULMONIC VALVE The pulmonary valve is normal in structure. GREAT VESSELS The aortic root is normal in size. The IVC is normal in size and collapses >50% with inspiration. PERICARDIAL EFFUSION There is no pleural effusion. There is no pericardial effusion. <Conclusion> Dilated LA. Normal LV size and systolic function. Mild concentric LVH. Mild TR.
== END 2017-06-27 18:56 | disposition home or self-care (01) ==
LOC: ED 12:50 → ERH 17:23 → 2RNO 21:10
PROVIDERS: ADMIT Hospitalist; ATTEND Hospitalist
DX: R07.89 Other chest pain (principal); K21.9 Gastro-esophageal reflux disease without esophagitis; I85.00 Esophageal varices without bleeding; I86.4 Gastric varices; I10 Essential (primary) hypertension; E11.9 Type 2 diabetes mellitus without complications; B19.20 Unspecified viral hepatitis C without hepatic coma; D64.9 Anemia, unspecified; I07.1 Rheumatic tricuspid insufficiency; K74.60 Unspecified cirrhosis of liver; I95.1 Orthostatic hypotension; E66.3 Overweight; Z79.84 Long term (current) use of oral hypoglycemic drugs
CPT/HCPCS: 36415; 70450; 71010; 74177; 80053; 80061; 81003; 82140; 82550; 82948; 83036; 83615; 83690; 83735; 83880; 84443; 84484; 85025; 85610; 85730; 93005; 93306; 96372; 96374; 96375; 96376; 99285; G0378; J1644; J2405; J3475; Q9966; Q9967

== ENCOUNTER 2018-01-22 12:12 | Observation (INO) | payer MEDICAID ==
[2018-01-22 12:21] VITALS: BMI 34.2
--- NOTE | 2018-01-22 12:23 | ED PDOC ---
Arrival/HPI - General Chief Complaint: High Blood Pressure Time Seen by Provider: 01/22/18 12:22 Historian: Patient, Family (daughter is at bedside, translating) - History of Present Illness Narrative History of Present Illness (Text): 01/22/18 12:35 pt p/w + extreme body malaise/fatigue/weakness/cramps and pain x 1 day; pt with elevated BP x 1week, noted avg bp in the 130-140s and noted it > 160s recently but last night BP was nearly 200; pt's FS was also elevated x last few days; per daughter, pt states no fever/chills/sweats, no cp/sob/palpitations, no abd pain, no n/v, no new numbness/tingling, no urinary/bowel changes, slight loose bm, no rashes, no LOC, ? lightheadedness/dizziness, no fall/trauma/sick contact , no travel; no slurr speech, no vision changes. pt is here for further eval pt's without other complaints. PCP: Dr Venegas Pt is right hand dominate pt is an croatian speaker pt lives with family Time/Duration: < week Symptom Onset: Sudden Symptom Course: Unchanged Quality: Cramping Severity Level: Severe Activities at Onset: Rest Context: Home Past Medical History - Provider Review Nursing Documentation Reviewed: Yes - Travel History Have you recently traveled outside [place] w/in the past 3 mons?: No - Past History Past History: No Previous - Infectious Disease Hx of Infectious Diseases: None - Tetanus Immunization Tetanus Immunization: Unknown - Reproductive Menopause: Yes Currently : No - Cardiac Hx Cardiac Disorders: Yes Hx Circulatory Problems: Yes Hx Hypertension: Yes Hx Peripheral Edema: Yes - Pulmonary Hx Respiratory Disorders: Yes Hx Asthma: Yes (Climate induced.) Hx Bronchitis: Yes - Neurological Hx Neurological Disorder: Yes Hx Dizziness: Yes - HEENT Hx HEENT Disorder: No - Renal Hx Renal Disorder: No - Endocrine/Metabolic Hx Endocrine Disorders: Yes Hx Diabetes Mellitus Type 2: Yes - Hematological/Oncological Hx Blood Disorders: Yes (Occasional nosebleeds.) Hx Hepatitis C: Yes - Integumentary Hx Dermatological Disorder: No - Musculoskeletal/Rheumatological Hx Musculoskeletal Disorders: Yes Hx Back Pain: Yes Hx Falls: Yes Hx Herniated Disk: Yes Hx Osteoporosis: Yes - Gastrointestinal Hx Gastrointestinal Disorders: Yes (Hx of Colon Polyps.HEMORRHOIDS WITH SX) - Genitourinary/Gynecological Hx Genitourinary Disorders: No - Psychiatric Hx Psychophysiologic Disorder: No Hx Substance Use: No - Past Surgical History Past Surgical History: Unable to Obtain - Surgical History Hx Cardiac Catheterization: Yes - Suicidal Assessment Feels Threatened In Home Enviroment: No Family/Social History - Physician Review Nursing Documentation Reviewed: Yes Family/Social History: No Known Family HX Smoking Status: Never Smoked Hx Alcohol Use: No Hx Substance Use: No Hx Substance Use Treatment: No Allergies/Home Meds Allergies/Adverse Reactions: Allergies No Known Allergies Allergy (Verified 01/22/18 12:21) Home Medications: Home Meds Medication Instructions Recorded Confirmed Carvedilol [Coreg] 3.125 mg PO BID 06/26/17 01/22/18 Glimepiride [Amaryl] 1 mg PO BID 06/26/17 01/22/18 Clonazepam [Klonopin] 0.5 mg PO HS 01/22/18 01/22/18 Gabapentin [Neurontin] 100 mg PO TID 01/22/18 01/22/18 Spironolactone [Aldactone] 50 mg PO DAILY 01/22/18 01/22/18 Review of Systems - Review of Systems Constitutional: Fatigue Eyes: Normal ENT: Normal Respiratory: Normal Cardiovascular: absent: Chest Pain, Orthopnea, Syncope Gastrointestinal: Normal Genitourinary Female: Normal Musculoskeletal: Back Pain, Other (diffuse body/joint pain) Skin: Normal Neurological: absent: Headache, Dizziness Endocrine: Normal Hemo/Lymphatic: Normal Psychiatric: Normal Physical Exam Vital Signs Reviewed: Yes Vital Signs Temp Pulse Pulse Resp BP Pulse Ox 01/22/18 18:12 97.8 F 64 18 136/87 100 01/22/18 15:06 58 L 19 139/63 100 01/22/18 13:16 70 178/87 H 01/22/18 12:32 73 01/22/18 12:21 97.9 F 73 18 179/68 H 99 01/22/18 12:20 97.9 F 73 19 179/68 H 99 Temperature: Afebrile Blood Pressure: Hypertensive Pulse: Regular Respiratory Rate: Normal Appearance: Positive for: Well-Appearing, Non-Toxic, Uncomfortable, Other ( resting in bed, alert/awake, GCS = 15, cooperative, uncomfortable, follows command with ease) Pain Distress: None Mental Status: Positive for: Alert and Oriented X 3 - Systems Exam Head: Present: Atraumatic, Normocephalic Pupils: Present: PERRL Extroacular Muscles: Present: EOMI Conjunctiva: Present: Normal Ears: Present: Normal Mouth: Present: Dry, Normal Teeth Pharnyx: Present: Normal Nose (External): Present: Atraumatic Nose (Internal): Present: Normal Inspection Neck: Present: Normal Range of Motion, Trachea Midline. No: Meningeal Signs, MIDLINE TENDERNESS Respiratory/Chest: Present: Clear to Auscultation, Good Air Exchange, Other ( CTA b/l, no w/r/r, no accessory muscle use noted, no tachypenia) Cardiovascular: Present: Regular Rate and Rhythm, Normal S1, S2. No: Murmurs Abdomen: Present: Normal Bowel Sounds, Other (well nourished female, no focal tenderness, no cha's sign, no mcburney's point tenderness, no masses/rebound/ guarding/rigidity) Back: Present: Normal Inspection, Other (no midline tenderness). No: CVA Tenderness, Midline Tenderness Upper Extremity: Present: Normal Inspection, Normal ROM, NORMAL PULSES, Neurovascularly Intact. No: Edema, Deformity Lower Extremity: Present: Normal Inspection, NORMAL PULSES, Normal ROM, Neurovascularly Intact, Other (strength 5/5 grossly intact in all limbs, neurovasc intact b/l). No: CALF TENDERNESS, Anival's Sign Neurological: Present: GCS=15, CN II-XII Intact, Speech Normal, Other (no facial asymmetries, no slurr speech) Skin: Present: Warm, Normal Color, Other (cap refill < 1sec, no ulcerations, no petechiae). No: Rashes Psychiatric: Present: Alert Medical Decision Making ED Course and Treatment: 01/22/18 12:37 Impression: elevated BP, elevated FS i have consider all the differential diagnosis regarding pt's chief medical complaints/clinical findings, including but are not limited to: body malaise, elevated BP/FS A/P: elevated BP/FS - labs - iv - xray - observe - supportive care 1400 pt continues to have lower leg cramps, and is uncomfortable 01/22/2018 15:[address] Reyes, hospitalist quality compliance consultant, due to patient's sodium level lower than usual, recommends patient for admission. Family is a aware and agrees with recommendation of admission. 01/22/18 18:25 pt is doing well, decr discomfort pt/family are made aware of pt's medical results agrees with admission/observation Re-evaluation Time: 15:53 Reassessment Condition: Improving,but remains with symptoms - Lab Interpretations Lab Results: 01/22/18 13:20 01/22/18 13:20 Lab Results 01/22/18 13:21: pO2 78 H, VBG pH 7.34, VBG pCO2 50.0, VBG HCO3 27.0, VBG Total CO2 28.5 H, VBG O2 Sat (Calc) 97.3 H, VBG Base Excess 0.5, VBG Potassium 4.1, Glucose 179 H, Lactate 0.8, FiO2 21.0, Sodium 125.0 L, Chloride 93.0 L, Venous Blood Potassium 4.1 01/22/18 13:20: Magnesium 1.6 L 01/22/18 13:20: Serum Osmolality Pending, TSH 3rd Generation 1.77 01/22/18 13:20: Sodium 125 L, Potassium 4.3, Chloride 92 L, Carbon Dioxide 24, Anion Gap 13, BUN 21, Creatinine 0.8, Est GFR ( Amer) > 60, Est GFR (Non- Af Amer) > 60, Random Glucose 177 H, Calcium 9.5, Total Bilirubin 0.5, AST 27, ALT 30, Alkaline Phosphatase 68, Lactate Dehydrogenase 384, Total Creatine Kinase 119, Troponin I < 0.01, Total Protein 8.0, Albumin 4.1, Globulin 3.9, Albumin/Globulin Ratio 1.0 L, Lipase 186 01/22/18 13:20: WBC 4.9, RBC 4.57, Hgb 10.3 L, Hct 31.9 L, MCV 69.8 L, MCH 22.5 L, MCHC 32.3, RDW 17.5 H, Plt Count 148, Gran % 67.3, Lymph % (Auto) 21.4 L, [place] % (Auto) 6.2 H, Eos % (Auto) 4.5, Baso % (Auto) 0.6, Gran # 3.28, Lymph # ( Auto) 1.0 L, [place] # (Auto) 0.3, Eos # (Auto) 0.2, Baso # (Auto) 0.03 I have reviewed the lab results: Yes Interpretation: Abnormal lab values (low NA) - RAD Interpretation Narrative RAD Interpretations (Text): 01/22/18 15:[address]: Creator: Luis Foy MD Impression: Normal CT of the head. No intracranial mass, hemorrhage, or evidence of acute infarct. No interval change. 01/22/18 18:26 HISTORY: AMS, diffuse pain COMPARISON: 06/26/2017 TECHNIQUE: Chest PA and lateral FINDINGS: LUNGS: No active pulmonary disease. PLEURA: No significant pleural effusion identified. No pneumothorax apparent. CARDIOVASCULAR: Normal. OSSEOUS STRUCTURES: No significant abnormalities. VISUALIZED UPPER ABDOMEN: Normal. OTHER FINDINGS: None. IMPRESSION: No active disease. 01/22/18 18:27 PROCEDURE: CT HEAD WITHOUT CONTRAST. HISTORY: dizziness COMPARISON: 06/26/2017 TECHNIQUE: Axial computed tomography images were obtained through the head/brain without intravenous contrast. Radiation dose: Total exam DLP = 822.74 mGy-cm. This CT exam was performed using one or more of the following dose reduction techniques: Automated exposure control, adjustment of the mA and/or kV according to patient size, and/or use of iterative reconstruction technique. FINDINGS: HEMORRHAGE: No intracranial hemorrhage. BRAIN: No mass effect or edema. No atrophy or chronic microvascular ischemic changes. VENTRICLES: Unremarkable. No hydrocephalus. CALVARIUM: Unremarkable. PARANASAL SINUSES: Unremarkable as visualized. No significant inflammatory changes. MASTOID AIR CELLS: Unremarkable as visualized. No inflammatory changes. OTHER FINDINGS: None. IMPRESSION: Normal CT of the Head. No intracranial mass, hemorrhage or evidence of acute infarct. No interval change. Radiology Orders: 01/22/18 12:32 HEAD W/O CONTRAST [CT] Stat 01/22/18 12:33 CHEST TWO VIEWS (PA/LAT) [RAD] Stat Desktop Specialist: Radiologist - EKG Interpretation EKG Interpretation (Text): 01/22/18 18:18 NSR at 70 bpm, normal axis, no ectopy, voltage critiera LVH, no st-t changes, voltage criteria LVH, BORDERLINE EKG; no gross changes compare with old ekg 2016 Interpreted by ED Physician: Yes Type: 12 lead EKG Comparison: Similar to previous EKG - Medication Orders Current Medication Orders: Carvedilol (Coreg) 3.125 mg PO BID CHRIS Clonazepam (Klonopin) 0.5 mg PO HS CHRIS PRN Reason: Protocol Enoxaparin Sodium (Lovenox) 40 mg SC DAILY CHRIS PRN Reason: Protocol Hydralazine HCl (Apresoline) 25 mg PO QID PRN PRN Reason: SBP >160 or DBP >90 Magnesium Sulfate/Dextrose (Magnesium Sulfate 1 Gm/100 Ml D5w) 1 gm in 100 mls @ 100 mls/hr IVPB ONCE ONE Stop: 01/22/18 19:07 Insulin Human Lispro (Humalog Low) 0 units SC ACHS CHRIS PRN Reason: Protocol Pantoprazole Sodium (Protonix Ec Tab) 40 mg PO DAILY CHRIS Discontinued Medications Diazepam (Valium) 5 mg PO ONCE ONE PRN Reason: Protocol Stop: 01/22/18 14:33 Last Admin: 01/22/18 14:42 Dose: 5 mg Hydralazine HCl (Apresoline) 10 mg PO ONCE ONE Stop: 01/22/18 12:36 Last Admin: 01/22/18 13:16 Dose: 10 mg MAR Pulse and Blood Pressure Document 01/22/18 13:16 [email or web address] (Rec: 01/22/18 13:16 [email or web address] [id number]) Pulse Pulse Rate (60-90) 70 Blood Pressure Blood Pressure (100/60-150/90) 178/87 Hydralazine HCl (Apresoline) 25 mg PO QID CHRIS Sodium Chloride (Sodium Chloride 0.9%) 1,000 mls @ 999 mls/hr IV .Q1H1M STA Stop: 01/22/18 13:34 Last Admin: 01/22/18 13:36 Dose: 999 mls/hr eMAR Start Stop Document 01/22/18 13:36 [email or web address] (Rec: 01/22/18 13:37 [email or web address] [id number]) Intravenous Solution Start Date 01/22/18 Start Time 13:37 End Date 01/22/18 Ketorolac Tromethamine (Toradol) 30 mg IVP STAT STA Stop: 01/22/18 12:35 Last Admin: 01/22/18 13:16 Dose: 30 mg MAR Pain Assessment Document 01/22/18 13:16 [email or web address] (Rec: 01/22/18 13:17 [email or web address] [id number]) Pain Reassessment Is this a pain reassessment? No Sleep Is patient sleeping during reassessment? No Presence of Pain Presence of Pain Yes Pain Scale Used Pain Scale Used Numeric Location Pain Location Body Site Generalized Description Description Constant Intensity of Pain at present 3 Pain Behavior Facial Grimacing Aggravating Factors Changing Position Alleviating Factors/Management Position Change Techniques Alleviating Factors Medication IVP Administration Document 01/22/18 13:16 [email or web address] (Rec: 01/22/18 13:17 [email or web address] [id number]) Charges for Administration # of IVP Administrations 1 Morphine Sulfate (Morphine) 2 mg IVP STAT STA Stop: 01/22/18 15:53 Last Admin: 01/22/18 16:05 Dose: 2 mg MAR Pain Assessment Document 01/22/18 16:05 OCS (Rec: 01/22/18 16:06 OCS [id number]) Pain Reassessment Is this a pain reassessment? Yes Sleep Is patient sleeping during reassessment? No Presence of Pain Presence of Pain Yes Location Left, Right or Bilateral Bilateral Upper or Lower Lower Pain Location Body Site Leg Description Description Constant IVP Administration Document 01/22/18 16:05 OCS (Rec: 01/22/18 16:06 OCS [id number]) Charges for Administration # of IVP Administrations 1 Pantoprazole Sodium (Protonix Ec Tab) 40 mg PO ONCE CHRIS Stop: 01/22/18 23:59 - Scribe Statement The provider has reviewed the documentation as recorded by the Scribe Disposition/Present on Arrival - Present on Arrival Any Indicators Present on Arrival: No History of DVT/PE: No History of Uncontrolled Diabetes: Yes Urinary Catheter: No History of Decub. Ulcer: No History Surgical Site Infection Following: None - Disposition Have Diagnosis and Disposition been Completed?: Yes Diagnosis: Acute hyponatremia, Weakness, Elevated blood pressure reading Disposition: HOSPITALIZED Disposition Time: 16:00 Patient Plan: Admission, Observation Condition: STABLE
[2018-01-22] MEDS ORDERED: Sodium Chloride 0.9% 1,000 ML IV STA (12:34)
[2018-01-22 13:24] LABS: BASO # 0.03 K/mm3 (0.0-2.0); BASO % 0.6 % (0.0-3.0); EOS # 0.2 (0.0-0.7); EOS % 4.5 % (1.5-5.0); GRAN # 3.28 (1.4-6.5); GRAN % 67.3 % (50.0-68.0); HEMOGLOBIN 10.3 g/dL (12.0-16.0); LYMPH % 21.4 % (22.0-35.0); MEAN CELL VOLUME 69.8 fl (80.0-105.0); MEAN CORPUSCULAR HEMOGLOBIN 22.5 pg (25.0-35.0); MEAN CORPUSCULAR HGB CONC 32.3 g/dl (31.0-37.0); MONO # 0.3 (0.1-0.6); MONO % 6.2 % (1.0-6.0); PLATELET COUNT 148 10^3/uL (120.0-450.0); RBC 4.57 10^6/uL (3.5-6.1); RED CELL DISTRIBUTION WIDTH 17.5 % (11.5-14.5); WHITE BLOOD COUNT 4.9 10^3/ul (4.5-11.0)
[2018-01-22 13:25] LABS: VENOUS BLOOD GAS BASE EXCESS 0.5 mmol/L (0.0-2.0); VENOUS BLOOD GAS PO2 78 mm/Hg (30-55); VENOUS BLOOD PH 7.34 (7.32-7.43)
[2018-01-22 13:36] LABS: ALBUMIN 4.1 g/dL (3.0-4.8); ALT/SGPT 30 U/L (7-56); AST/SGOT 27 U/L (14-36); BLOOD UREA NITROGEN 21 mg/dL (7-21); CALCIUM 9.5 mg/dL (8.4-10.5); GFR AFRICAN-AMERICAN > 60; GFR NON-AFRICAN AMERICAN > 60; LIPASE 186 U/L (23-300)
[2018-01-22 13:46] LABS: TROPONIN I < 0.01 ng/mL
--- NOTE | 2018-01-22 14:57 | CT ---
PROCEDURE: CT HEAD WITHOUT CONTRAST. HISTORY: dizziness COMPARISON: 06/26/2017 TECHNIQUE: Axial computed tomography images were obtained through the head/brain without intravenous contrast. Radiation dose: Total exam DLP = 822.74 mGy-cm. This CT exam was performed using one or more of the following dose reduction techniques: Automated exposure control, adjustment of the mA and/or kV according to patient size, and/or use of iterative reconstruction technique. FINDINGS: HEMORRHAGE: No intracranial hemorrhage. BRAIN: No mass effect or edema. No atrophy or chronic microvascular ischemic changes. VENTRICLES: Unremarkable. No hydrocephalus. CALVARIUM: Unremarkable. PARANASAL SINUSES: Unremarkable as visualized. No significant inflammatory changes. MASTOID AIR CELLS: Unremarkable as visualized. No inflammatory changes. OTHER FINDINGS: None. IMPRESSION: Normal CT of the Head. No intracranial mass, hemorrhage or evidence of acute infarct. No interval change.
--- NOTE | 2018-01-22 15:05 | RAD ---
HISTORY: AMS, diffuse pain COMPARISON: 06/26/2017 TECHNIQUE: Chest PA and lateral FINDINGS: LUNGS: No active pulmonary disease. PLEURA: No significant pleural effusion identified. No pneumothorax apparent. CARDIOVASCULAR: Normal. OSSEOUS STRUCTURES: No significant abnormalities. VISUALIZED UPPER ABDOMEN: Normal. OTHER FINDINGS: None. IMPRESSION: No active disease.
[2018-01-22] MEDS ORDERED: Morphine 2 mg/ml ISec IVP STA (15:52)
[2018-01-22] MEDS ORDERED: Pantoprazole 40 mg EC Tab PO SCH (17:45)
[2018-01-22] MEDS ORDERED: Magnesium Sulfate 1 gm in D5W 1 GM/100 ML BAG IVPB ONE (18:08)
--- NOTE | 2018-01-22 18:10 | CP.PCM.HP ---
<Artis Spivey - Last Filed: 01/23/18 07:20> History of Present Illness - History of Present Illness History of Present Illness: 67 year old female with a past medical history of HCV reportedly treated with SVR (at [facility]), hypertension, DM II, esophageal and gastric varices who presents with 1 day of muscle cramps, one episode of diarrhea, burning with urination, and inabilty to walk secondary to increased pain in her lower extremities. Patient also admits to feeling dizzy. She is accompanied by two family members. She reports drinking an excess of water as a habit. She denies headache, weakness, chest pain, and dyspnea. She is compliant with her current medications. PMD: Dr. Nix PSH: Denies Allergies: NKDA Medications: Reviewed Social: Denies alcohol, smoking, or illicit drug use FH: Non-contributory Present on Admission - Present on Admission Any Indicators Present on Admission: No Review of Systems - Review of Systems All systems: reviewed and no additional remarkable complaints except (as per HPI ) Past Patient History - Infectious Disease Hx of Infectious Diseases: None - Tetanus Immunizations Tetanus Immunization: Unknown - Past Medical History & Family History Past Medical History?: Yes - Past Social History Smoking Status: Never Smoked - CARDIAC Hx Cardiac Disorders: Yes Hx Circulatory Problems: Yes Hx Hypertension: Yes Hx Peripheral Edema: Yes - PULMONARY Hx Respiratory Disorders: Yes Hx Asthma: Yes (Climate induced.) Hx Bronchitis: Yes - NEUROLOGICAL Hx Neurological Disorder: Yes Hx Dizziness: Yes - HEENT Hx HEENT Problems: No - RENAL Hx Chronic Kidney Disease: No - ENDOCRINE/METABOLIC Hx Endocrine Disorders: Yes Hx Diabetes Mellitus Type 2: Yes - HEMATOLOGICAL/ONCOLOGICAL Hx Blood Disorders: Yes (Occasional nosebleeds.) Hx Hepatitis C: Yes - INTEGUMENTARY Hx Dermatological Problems: No - MUSCULOSKELETAL/RHEUMATOLOGICAL Hx Musculoskeletal Disorders: Yes Hx Back Pain: Yes Hx Falls: Yes Hx Herniated Disk: Yes Hx Osteoporosis: Yes - GASTROINTESTINAL Hx Gastrointestinal Disorders: Yes (Hx of Colon Polyps.HEMORRHOIDS WITH SX) - GENITOURINARY/GYNECOLOGICAL Hx Genitourinary Disorders: No - PSYCHIATRIC Hx Psychophysiologic Disorder: No Hx Substance Use: No - SURGICAL HISTORY Hx Cardiac Catheterization: Yes Meds Allergies/Adverse Reactions: Allergies Allergy/AdvReac Type Severity Reaction Status Date / Time No Known Allergies Allergy Verified 01/22/18 12:21 Physical Exam - Constitutional Appears: Non-toxic - Head Exam Head Exam: ATRAUMATIC, NORMOCEPHALIC - Eye Exam Eye Exam: EOMI, Normal appearance - ENT Exam ENT Exam: Mucous Membranes Moist, Normal Oropharynx - Neck Exam Neck exam: Positive for: Normal Inspection - Respiratory Exam Respiratory Exam: Clear to Auscultation Bilateral, NORMAL BREATHING PATTERN. absent: Accessory Muscle Use - Cardiovascular Exam Cardiovascular Exam: RRR, +S1, +S2 - GI/Abdominal Exam GI & Abdominal Exam: Tenderness (right sided abdominl pain to palpation) - Extremities Exam Extremities exam: Positive for: normal inspection. Negative for: calf tenderness - Back Exam Back exam: NORMAL INSPECTION. absent: CVA tenderness (L), CVA tenderness (R) - Neurological Exam Neurological exam: Alert, CN II-XII Intact, Oriented x3 - Psychiatric Exam Psychiatric exam: Normal Affect, Normal Mood - Skin Skin Exam: Dry, Intact, Normal Color, Warm Results - Vital Signs Recent Vital Signs: Last Vital Signs Temp 97.9 F 01/22/18 12:21 Pulse 58 L 01/22/18 15:06 Resp 19 01/22/18 15:06 BP 139/63 01/22/18 15:06 Pulse Ox 100 01/22/18 15:06 - Labs Result Diagrams: 01/22/18 13:20 01/22/18 13:20 Assessment & Plan - Assessment and Plan (Free Text) Assessment: 1) hyponatremia - 1500 fluid restriction - holding Spirinolactone, glimeperide, and Gabapentin as these may cause hyponatremia or other electrolyte disturbances - Random Urine Creatinine, Random Urine osmolality, Random Na urine - beta-hydroxybutyrate 2) Muscle cramps and dizziness likely secondary to electrolyte disturbance - Low magesium, repleted - CT head w/o contrast negative - lower extremity duplex US negative for sonographic evidence of DVT - Clonazepam, continue home medication, which has muscle relaxant properties 3) Hypertension - Hydralazine 25 mg QID PRN for SBP greater than 160 - Carvedilol 3.125 BID 4) DVT/GI prophylaxis - Lovenox 40 mg SC - Protonix 40 mg PO Daily Case seen and discussed with attending physician, Dr. Andrea Shankar - Date & Time Date: 01/22/18 Time: 18:20 <Andrea Shankar - Last Filed: 01/23/18 07:51> Results - Vital Signs Recent Vital Signs: Last Vital Signs Temp 97.8 F 01/22/18 18:12 Pulse 64 01/22/18 18:12 Resp 20 01/23/18 00:55 BP 136/87 01/22/18 18:12 Pulse Ox 100 01/22/18 18:12 - Labs Result Diagrams: 01/22/18 13:20 01/22/18 13:20 Labs: Laboratory Results - last 24 hr 01/22/18 01/23/18 01/23/18 22:21 01:30 01:30 POC Glucose (mg/dL) 130 H Urine Color Urine Appearance Urine pH Ur Specific [place] Urine Protein Urine Glucose (UA) Urine Ketones Urine Blood Urine Nitrate Urine Bilirubin Urine Urobilinogen Ur Leukocyte Esterase Urine RBC Urine WBC Ur Epithelial Cells Ur Random Creatinine 80 Ur Random Sodium 37 Ur Random Potassium 20.5 01/23/18 01:30 POC Glucose (mg/dL) Urine Color Yellow Urine Appearance Clear Urine pH 6.0 Ur Specific [place] 1.015 Urine Protein Negative Urine Glucose (UA) Negative Urine Ketones Negative Urine Blood Negative Urine Nitrate Negative Urine Bilirubin Negative Urine Urobilinogen 0.2 Ur Leukocyte Esterase Trace H Urine RBC 0 - 2 Urine WBC 0 - 2 Ur Epithelial Cells 0 - 2 Ur Random Creatinine Ur Random Sodium Ur Random Potassium Attending/Attestation - Attestation I have personally seen and examined this patient.: Yes I have fully participated in the care of the patient.: Yes I have reviewed all pertinent clinical information: Yes Notes (Text): 01/22/18 67 year old female with past medical history of hepatitis C, hypertension and diabetes who presents with complaint of weakness and lower extremity cramps. She is found to have hyponatremia with sodium of 125. She admits to drinking excess water for past several days. Also reports being on diuretics ( spironalactone and ?lasix). Will order urine electrolytes, serum and urine osmolality. Hold diuretics for now with fluid restriction. Repeat labs in AM. TSH was normal. LE extremity dopplers were negative for DVT. Continue with tylenol prn for pain. Family is at bedside and questions were answered. Andrea Shankar MD Hospitalist.
--- NOTE | 2018-01-22 19:12 | US ---
HISTORY: Leg pain and swelling. Evaluate for DVT PHYSICIAN(S): Luis Burton MD. TECHNIQUE: Duplex sonography and color-flow Doppler with graded compression were used to evaluate the deep venous systems of both lower extremities. FINDINGS: The visualized deep venous systems of both lower extremities are sonographically normal and compressible. Normal wave forms and augmentation are seen. There is no sonographic evidence for deep venous thrombosis in the visualized segments of both lower extremities. IMPRESSION: No sonographic evidence for deep venous thrombosis in the visualized segments of both lower extremities.
--- NOTE | 2018-01-22 20:45 | CARD ---
APPROVED REPORT EKG Measurement Heart [id number] 180P31 [id number] <Conclusion> Normal sinus rhythm with sinus arrhythmia Moderate voltage criteria for LVH, may be normal variant Borderline ECG
[2018-01-22] MEDS: Insulin Lispro (humaLOG) LOW Coverage SC SCH (22:32)
[2018-01-23 01:50] LABS: URINE BILIRUBIN NEGATIVE (NEGATIVE); URINE BLOOD NEGATIVE (NEGATIVE); URINE GLUCOSE (UA) NEGATIVE (NEGATIVE); URINE LEUKOCYTE ESTERASE TRACE Leu/uL (NEGATIVE); URINE PROTEIN NEGATIVE mg/dL (<30 mg/dL); URINE UROBILINOGEN 0.2 E.U./dL (<1 E.U./dL)
[2018-01-23 01:54] LABS: URINE APPEARANCE CLEAR (CLEAR); URINE COLOR YELLOW (YELLOW)
[2018-01-23 02:06] LABS: URINE EPITHELIAL CELLS 0 - 2 /hpf (0-5); URINE RBC 0 - 2 /hpf (0-2); URINE WBC 0 - 2 /hpf (0-6)
[2018-01-23 02:22] LABS: CREATININE,RANDOM URINE 80 mg/dL
[2018-01-23] MEDS: Insulin Lispro (humaLOG) LOW Coverage SC SCH ×2 (08:01→12:15)
[2018-01-23 08:02] LABS: BASO # 0.04 K/mm3 (0.0-2.0); BASO % 0.7 % (0.0-3.0); EOS # 0.3 (0.0-0.7); EOS % 4.2 % (1.5-5.0); GRAN # 2.62 (1.4-6.5); GRAN % 44.5 % (50.0-68.0); HEMOGLOBIN 9.4 g/dL (12.0-16.0); LYMPH # 2.5 (1.2-3.4); MEAN CELL VOLUME 69.9 fl (80.0-105.0); MEAN CORPUSCULAR HGB CONC 31.4 g/dl (31.0-37.0); MONO # 0.5 (0.1-0.6); MONO % 8.6 % (1.0-6.0); RBC 4.28 10^6/uL (3.5-6.1); RED CELL DISTRIBUTION WIDTH 17.5 % (11.5-14.5); WHITE BLOOD COUNT 5.9 10^3/ul (4.5-11.0)
[2018-01-23 08:12] LABS: ALBUMIN 3.6 g/dL (3.0-4.8); ALT/SGPT 25 U/L (7-56); AST/SGOT 24 U/L (14-36); BLOOD UREA NITROGEN 23 mg/dL (7-21); CALCIUM 9.2 mg/dL (8.4-10.5); GFR AFRICAN-AMERICAN > 60; GFR NON-AFRICAN AMERICAN > 60
[2018-01-23 08:28] VITALS: BP 149/60; PULSE 73; RESP 94; TEMP 98; O2SAT 99
[2018-01-23] MEDS ORDERED: Pantoprazole 40 mg EC Tab PO SCH (10:00)
[2018-01-23] MEDS ORDERED: Enoxaparin 40 mg Syringe SC SCH (10:00)
[2018-01-23 11:51] LABS: OSMOLALITY,URINE 441 mosm/kg (300-1000)
--- NOTE | 2018-01-23 18:48 | CP.PCM.DIS ---
<Bull Hayden - Last Filed: 01/23/18 18:18> Provider - Provider Date of Admission: 01/22/18 15:56 Attending physician: Aleshia Rodriguez MD Primary care physician: Amira Ty MD Time Spent in preparation of Discharge (in minutes): 45 Diagnosis - Discharge Diagnosis (1) Leg cramps Status: Acute Priority: Medium (2) Hyponatremia Status: Acute Priority: High (3) Elevated blood pressure reading Status: Acute Priority: High Hospital Course - Lab Results Lab Results: Most Recent Lab Values WBC 5.9 10^3/ul (4.5-11.0) D 01/23/18 07:50 RBC 4.28 10^6/uL (3.5-6.1) 01/23/18 07:50 Hgb 9.4 g/dL (12.0-16.0) L 01/23/18 07:50 Hct 29.9 % (36.0-48.0) L 01/23/18 07:50 MCV 69.9 fl (80.0-105.0) L 01/23/18 07:50 MCH 22.0 pg (25.0-35.0) L 01/23/18 07:50 MCHC 31.4 g/dl (31.0-37.0) 01/23/18 07:50 RDW 17.5 % (11.5-14.5) H 01/23/18 07:50 Plt Count 151 10^3/uL (120.0-450.0) 01/23/18 07:50 MPV 10.0 fl (7.0-11.0) 01/23/18 07:50 Gran % 44.5 % (50.0-68.0) L 01/23/18 07:50 Lymph % (Auto) 42.0 % (22.0-35.0) H 01/23/18 07:50 [place] % (Auto) 8.6 % (1.0-6.0) H 01/23/18 07:50 Eos % (Auto) 4.2 % (1.5-5.0) 01/23/18 07:50 Baso % (Auto) 0.7 % (0.0-3.0) 01/23/18 07:50 Gran # 2.62 (1.4-6.5) 01/23/18 07:50 Lymph # (Auto) 2.5 (1.2-3.4) 01/23/18 07:50 [place] # (Auto) 0.5 (0.1-0.6) 01/23/18 07:50 Eos # (Auto) 0.3 (0.0-0.7) 01/23/18 07:50 Baso # (Auto) 0.04 K/mm3 (0.0-2.0) 01/23/18 07:50 pO2 78 mm/Hg (30-55) H 01/22/18 13:21 VBG pH 7.34 (7.32-7.43) 01/22/18 13:21 VBG pCO2 50.0 (40-60) 01/22/18 13:21 VBG HCO3 27.0 mmol/l (21-28) 01/22/18 13:21 VBG Total CO2 28.5 mmol.L (22-28) H 01/22/18 13:21 VBG O2 Sat (Calc) 97.3 % (40-65) H 01/22/18 13:21 VBG Base Excess 0.5 mmol/L (0.0-2.0) 01/22/18 13:21 VBG Potassium 4.1 mmol/L (3.6-5.2) 01/22/18 13:21 Sodium 125.0 mmol/L (132-148) L 01/22/18 13:21 Chloride 93.0 mmol/L (98-107) L 01/22/18 13:21 Glucose 179 mg/dl (65-105) H 01/22/18 13:21 Lactate 0.8 mmol/L (0.7-2.1) 01/22/18 13:21 FiO2 21.0 % 01/22/18 13:21 Sodium 128 mmol/L (132-148) L 01/23/18 07:50 Potassium 4.9 mmol/L (3.6-5.0) 01/23/18 07:50 Chloride 97 mmol/L (98-107) L 01/23/18 07:50 Carbon Dioxide 25 mmol/L (21-33) 01/23/18 07:50 Anion Gap 11 (10-20) 01/23/18 07:50 BUN 23 mg/dL (7-21) H 01/23/18 07:50 Creatinine 0.8 mg/dl (0.7-1.2) 01/23/18 07:50 Est GFR ( Amer) > 60 01/23/18 07:50 Est GFR (Non-Af Amer) > 60 01/23/18 07:50 POC Glucose (mg/dL) 132 mg/dL (65-110) H 01/23/18 11:47 Random Glucose 126 mg/dL (70-110) H 01/23/18 07:50 Serum Osmolality 275 mosm/kg (272-300) 01/22/18 13:20 Calcium 9.2 mg/dL (8.4-10.5) 01/23/18 07:50 Magnesium 1.9 mg/dL (1.7-2.2) 01/23/18 07:50 Total Bilirubin 0.2 mg/dL (0.2-1.3) 01/23/18 07:50 AST 24 U/L (14-36) 01/23/18 07:50 ALT 25 U/L (7-56) 01/23/18 07:50 Alkaline Phosphatase 62 U/L (38-126) 01/23/18 07:50 Lactate Dehydrogenase 384 U/L (333-699) 01/22/18 13:20 Total Creatine Kinase 119 U/L (35-230) 01/22/18 13:20 Troponin I < 0.01 ng/mL 01/22/18 13:20 Total Protein 7.3 g/dL (5.8-8.3) 01/23/18 07:50 Albumin 3.6 g/dL (3.0-4.8) 01/23/18 07:50 Globulin 3.7 gm/dL 01/23/18 07:50 Albumin/Globulin Ratio 1.0 (1.1-1.8) L 01/23/18 07:50 Lipase 186 U/L (23-300) 01/22/18 13:20 TSH 3rd Generation 1.77 mIU/mL (0.46-4.68) 01/22/18 13:20 Venous Blood Potassium 4.1 mmol/L (3.6-5.2) 01/22/18 13:21 Urine Color Yellow (YELLOW) 01/23/18 01:30 Urine Appearance Clear (CLEAR) 01/23/18 01:30 Urine pH 6.0 (4.7-8.0) 01/23/18 01:30 Ur Specific [place] 1.015 (1.005-1.035) 01/23/18 01:30 Urine Protein Negative mg/dL (<30 mg/dL) 01/23/18 01:30 Urine Glucose (UA) Negative mg/dL (NEGATIVE) 01/23/18 01:30 Urine Ketones Negative mg/dL (NEGATIVE) 01/23/18 01:30 Urine Blood Negative (NEGATIVE) 01/23/18 01:30 Urine Nitrate Negative (NEGATIVE) 01/23/18 01:30 Urine Bilirubin Negative (NEGATIVE) 01/23/18 01:30 Urine Urobilinogen 0.2 E.U./dL (<1 E.U./dL) 01/23/18 01:30 Ur Leukocyte Esterase Trace Adria/uL (NEGATIVE) H 01/23/18 01:30 Urine RBC 0 - 2 /hpf (0-2) 01/23/18 01:30 Urine WBC 0 - 2 /hpf (0-6) 01/23/18 01:30 Ur Epithelial Cells 0 - 2 /hpf (0-5) 01/23/18 01:30 Urine Osmolality 441 mosm/kg (300-1000) 01/23/18 01:30 Ur Random Creatinine 80 mg/dL 01/23/18 01:30 Ur Random Sodium 37 meq/L 01/23/18 01:30 Ur Random Potassium 20.5 meq/L 01/23/18 01:30 - Hospital Course Hospital Course: 67 year old female with a past medical history of HCV reportedly treated with SVR (at [facility]), hypertension, DM II, esophageal and gastric varices who presents with 1 day of muscle cramps, one episode of diarrhea, burning with urination, and inabilty to walk secondary to increased pain in her lower extremities. She was also noted to be acutely severely hypertensive on admission. BP improved with continuation of her home BP regimen. Patient had lower extremity dopplers which were negative for DVT. Leg pain was determined to be most likely secondary to neurogenic claudication due to chronic lumbar disk disease, diabetic peripheral neuropathy which was worsened by hepatitis C treatment, and deconditioning, made acutely worse by electrolyte disturbances. Patient was observed ambulating around the room with a mildly antalgic gait, but without instability. Patient was also initially hyponatremic, which was determined to be euvolemic hypoosmotic hyponatremia, with elevated urine osmolality. Patient is on diuretics, which may falsely elevate urine osmolality , but will require repeat studies and outpatient follow up to confirm diagnosis of psychogenic polydipsia, as she admits to frequently and excessively drinking water habitually. Today, patient still complaining of bilateral calf pain, but is able to walk around her room. She denies chest pain, shortness of breath, fever, chills, nausea, vomiting, diarrhea, constipation. She also denies perineal numbness, urinary incontinence, or bowel incontinence. She does admit to some mild dysuria , and was noted to have trace leukocyte esterase on UA. She was also noted to be mildly anemic. Patient was given prescriptions for antibiotics to treat presumed UTI, iron supplementation, and Lyrica, and instructed to discontinue gabapentin. She was also instructed to follow up with her PMD Dr. Ty. All questions were answered to her and her daughter's satisfaction, and she was discharged to home. Discharge Exam - Head Exam Head Exam: ATRAUMATIC, NORMOCEPHALIC - Eye Exam Eye Exam: EOMI, Normal appearance, PERRL Pupil Exam: NORMAL ACCOMODATION - ENT Exam ENT Exam: Mucous Membranes Moist - Neck Exam Neck exam: Full Rom, Normal Inspection - Respiratory Exam Respiratory Exam: Clear to PA & Lateral, NORMAL BREATHING PATTERN - Cardiovascular Exam Cardiovascular Exam: RRR, +S1, +S2 - GI/Abdominal Exam GI & Abdominal Exam: Normal Bowel Sounds, Soft. absent: Tenderness - Extremities Exam Additional comments: Mild calf tenderness, R>L No pedal edema Strong pedal pulses bilaterally - Back Exam Back exam: absent: CVA tenderness (L), CVA tenderness (R) - Neurological Exam Neurological exam: Alert, CN II-XII Intact, Oriented x3 - Psychiatric Exam Psychiatric exam: Normal Affect, Normal Mood - Skin Skin Exam: Dry, Intact, Normal Color Discharge Plan - Discharge Medications Prescriptions: Ferrous Sulfate 325 mg PO DAILY #30 tablet Pregabalin [Lyrica] 100 mg PO TID #90 cap Sulfamethoxazole/Trimethoprim [Bactrim DS 800 mg-160 mg] 1 tab PO BID #10 tab - Follow Up Plan Condition: STABLE Disposition: HOME/ ROUTINE Instructions: Fatigue (DC), Hyponatremia (DC) Additional Instructions: 1. Continue to take antibiotics - Bactrim twice daily for 5 days 2. Discontinue gabapentin; take Lyrica 100mg three times daily 3. Continue to take iron supplement daily; follow up with your primary care doctor to recheck your blood counts 4. Follow up with your primary care doctor within one week 5. Continue all other medications as previously prescribed Referrals: Amira Ty MD [Primary Care Provider] - <Andrea Shankar - Last Filed: 01/24/18 08:28> Provider - Provider Date of Admission: 01/22/18 15:56 Attending physician: Aleshia Rodriguez MD Primary care physician: Amira Ty MD Hospital Course - Lab Results Lab Results: Most Recent Lab Values WBC 5.9 10^3/ul (4.5-11.0) D 01/23/18 07:50 RBC 4.28 10^6/uL (3.5-6.1) 01/23/18 07:50 Hgb 9.4 g/dL (12.0-16.0) L 01/23/18 07:50 Hct 29.9 % (36.0-48.0) L 01/23/18 07:50 MCV 69.9 fl (80.0-105.0) L 01/23/18 07:50 MCH 22.0 pg (25.0-35.0) L 01/23/18 07:50 MCHC 31.4 g/dl (31.0-37.0) 01/23/18 07:50 RDW 17.5 % (11.5-14.5) H 01/23/18 07:50 Plt Count 151 10^3/uL (120.0-450.0) 01/23/18 07:50 MPV 10.0 fl (7.0-11.0) 01/23/18 07:50 Gran % 44.5 % (50.0-68.0) L 01/23/18 07:50 Lymph % (Auto) 42.0 % (22.0-35.0) H 01/23/18 07:50 [place] % (Auto) 8.6 % (1.0-6.0) H 01/23/18 07:50 Eos % (Auto) 4.2 % (1.5-5.0) 01/23/18 07:50 Baso % (Auto) 0.7 % (0.0-3.0) 01/23/18 07:50 Gran # 2.62 (1.4-6.5) 01/23/18 07:50 Lymph # (Auto) 2.5 (1.2-3.4) 01/23/18 07:50 [place] # (Auto) 0.5 (0.1-0.6) 01/23/18 07:50 Eos # (Auto) 0.3 (0.0-0.7) 01/23/18 07:50 Baso # (Auto) 0.04 K/mm3 (0.0-2.0) 01/23/18 07:50 pO2 78 mm/Hg (30-55) H 01/22/18 13:21 VBG pH 7.34 (7.32-7.43) 01/22/18 13:21 VBG pCO2 50.0 (40-60) 01/22/18 13:21 VBG HCO3 27.0 mmol/l (21-28) 01/22/18 13:21 VBG Total CO2 28.5 mmol.L (22-28) H 01/22/18 13:21 VBG O2 Sat (Calc) 97.3 % (40-65) H 01/22/18 13:21 VBG Base Excess 0.5 mmol/L (0.0-2.0) 01/22/18 13:21 VBG Potassium 4.1 mmol/L (3.6-5.2) 01/22/18 13:21 Sodium 125.0 mmol/L (132-148) L 01/22/18 13:21 Chloride 93.0 mmol/L (98-107) L 01/22/18 13:21 Glucose 179 mg/dl (65-105) H 01/22/18 13:21 Lactate 0.8 mmol/L (0.7-2.1) 01/22/18 13:21 FiO2 21.0 % 01/22/18 13:21 Sodium 128 mmol/L (132-148) L 01/23/18 07:50 Potassium 4.9 mmol/L (3.6-5.0) 01/23/18 07:50 Chloride 97 mmol/L (98-107) L 01/23/18 07:50 Carbon Dioxide 25 mmol/L (21-33) 01/23/18 07:50 Anion Gap 11 (10-20) 01/23/18 07:50 BUN 23 mg/dL (7-21) H 01/23/18 07:50 Creatinine 0.8 mg/dl (0.7-1.2) 01/23/18 07:50 Est GFR ( Amer) > 60 01/23/18 07:50 Est GFR (Non-Af Amer) > 60 01/23/18 07:50 POC Glucose (mg/dL) 132 mg/dL (65-110) H 01/23/18 11:47 Random Glucose 126 mg/dL (70-110) H 01/23/18 07:50 Serum Osmolality 275 mosm/kg (272-300) 01/22/18 13:20 Calcium 9.2 mg/dL (8.4-10.5) 01/23/18 07:50 Magnesium 1.9 mg/dL (1.7-2.2) 01/23/18 07:50 Ferritin 9.4 ng/mL 01/23/18 07:00 Total Bilirubin 0.2 mg/dL (0.2-1.3) 01/23/18 07:50 AST 24 U/L (14-36) 01/23/18 07:50 ALT 25 U/L (7-56) 01/23/18 07:50 Alkaline Phosphatase 62 U/L (38-126) 01/23/18 07:50 Lactate Dehydrogenase 384 U/L (333-699) 01/22/18 13:20 Total Creatine Kinase 119 U/L (35-230) 01/22/18 13:20 Troponin I < 0.01 ng/mL 01/22/18 13:20 Total Protein 7.3 g/dL (5.8-8.3) 01/23/18 07:50 Albumin 3.6 g/dL (3.0-4.8) 01/23/18 07:50 Globulin 3.7 gm/dL 01/23/18 07:50 Albumin/Globulin Ratio 1.0 (1.1-1.8) L 01/23/18 07:50 Lipase 186 U/L (23-300) 01/22/18 13:20 TSH 3rd Generation 1.77 mIU/mL (0.46-4.68) 01/22/18 13:20 Venous Blood Potassium 4.1 mmol/L (3.6-5.2) 01/22/18 13:21 Urine Color Yellow (YELLOW) 01/23/18 01:30 Urine Appearance Clear (CLEAR) 01/23/18 01:30 Urine pH 6.0 (4.7-8.0) 01/23/18 01:30 Ur Specific [place] 1.015 (1.005-1.035) 01/23/18 01:30 Urine Protein Negative mg/dL (<30 mg/dL) 01/23/18 01:30 Urine Glucose (UA) Negative mg/dL (NEGATIVE) 01/23/18 01:30 Urine Ketones Negative mg/dL (NEGATIVE) 01/23/18 01:30 Urine Blood Negative (NEGATIVE) 01/23/18 01:30 Urine Nitrate Negative (NEGATIVE) 01/23/18 01:30 Urine Bilirubin Negative (NEGATIVE) 01/23/18 01:30 Urine Urobilinogen 0.2 E.U./dL (<1 E.U./dL) 01/23/18 01:30 Ur Leukocyte Esterase Trace Adria/uL (NEGATIVE) H 01/23/18 01:30 Urine RBC 0 - 2 /hpf (0-2) 01/23/18 01:30 Urine WBC 0 - 2 /hpf (0-6) 01/23/18 01:30 Ur Epithelial Cells 0 - 2 /hpf (0-5) 01/23/18 01:30 Urine Osmolality 441 mosm/kg (300-1000) 01/23/18 01:30 Ur Random Creatinine 80 mg/dL 01/23/18 01:30 Ur Random Sodium 37 meq/L 01/23/18 01:30 Ur Random Potassium 20.5 meq/L 01/23/18 01:30 Attending/Attestation - Attestation I have personally seen and examined this patient.: Yes I have fully participated in the care of the patient.: Yes I have reviewed all pertinent clinical information, including history, physical exam and plan: Yes Notes (Text): 01/23/18 67 year old female with past medical history of hepatitis C, hypertension and diabetes who presents with complaint of weakness and lower extremity cramps. She was found to have hyponatremia with sodium of 125. She admitted to history of drinking excess water for past several days. She was also on diuretics Her diuretics were held and she was on fluid restriction. Sodium improved the following day. LE extremity dopplers were negative for DVT. Her gabapentin was switched to lyrica. She is started on iron supplementation for anemia. She is discharged home to follow up with her pmd. Counselled on fluid restriction and holding diuretics for now. Repeat labs in 2-3 days with pmd to follow up repeat sodium. Follow up with GI as outpatient for possible EGD for evaluation of anemia. Andrea Shankar MD Hospitalist.
== END 2018-01-23 16:39 | disposition home or self-care (01) ==
LOC: ED 12:12 → ERH 15:56 → 3RNO 18:45
PROVIDERS: ADMIT Hospitalist; ATTEND Hospitalist
DX: E87.1 Hypo-osmolality and hyponatremia (principal); I10 Essential (primary) hypertension; E11.42 Type 2 diabetes mellitus with diabetic polyneuropathy; D64.9 Anemia, unspecified; Z86.19 Personal history of other infectious and parasitic diseases; M81.0 Age-related osteoporosis without current pathological fracture
CPT/HCPCS: 36415; 70450; 71046; 80053; 81001; 82010; 82550; 82570; 82728; 82803; 82948; 83615; 83690; 83735; 83930; 83935; 84133; 84300; 84443; 84484; 85025; 93005; 93970; 96365; 96372; 96375; 99285; G0378; J1650; J1885; J2270; J3475; J7040